=== PATIENT | female | born 1950 | race Caucasian/White ===

== ENCOUNTER → 2017-08-09 | Outpatient (CLI) | payer MEDICARE, OTHER | LOC: LAB SHORT 09:59 → PLD 09:59 | DX: D48.5 Neoplasm of uncertain behavior of skin (principal) | CPT/HCPCS: 88305 ==

== ENCOUNTER → 2018-10-18 | Outpatient (CLI) | payer MEDICARE, OTHER ==
[2018-10-19 08:15] LABS: HBSAG SCREEN Negative (Negative); HCV ANTIBODY <0.1 (0.0-0.9)
== END | disposition home or self-care (01) ==
LOC: LAB 13:05 → LAB SHORT 13:05
PROVIDERS: Emergency Medicine
DX: Z77.21 Contact with and (suspected) exposure to potentially hazardous body fluids (principal)
CPT/HCPCS: 84460; 86317; 86703; 86803; 87340

== ENCOUNTER → 2018-11-29 | Outpatient (CLI) | payer MEDICARE, OTHER ==
[2018-11-30 07:08] LABS: HIV SCREEN 4TH GENERATION WRFX Non Reactive (Non Reactive)
== END | disposition home or self-care (01) ==
LOC: LAB 13:59 → LAB SHORT 13:59
DX: Z77.21 Contact with and (suspected) exposure to potentially hazardous body fluids (principal)
CPT/HCPCS: 86803; 87389

== ENCOUNTER → 2019-02-15 | Outpatient (CLI) | payer MEDICARE, OTHER ==
[2019-02-16 04:07] LABS: HIV SCREEN 4TH GENERATION WRFX Non Reactive (Non Reactive)
== END ==
LOC: LAB 09:09 → LAB SHORT 09:09
PROVIDERS: Nurse Practitioner
DX: Z77.21 Contact with and (suspected) exposure to potentially hazardous body fluids (principal)
CPT/HCPCS: 87389

== ENCOUNTER → 2019-06-01 | Outpatient (CLI) | payer MEDICARE, OTHER ==
[2019-06-06 01:06] LABS: HCV ANTIBODY <0.1 (0.0-0.9); HIV SCREEN 4TH GENERATION WRFX Non Reactive (Non Reactive)
== END | disposition home or self-care (01) ==
LOC: LAB 17:54 → LAB SHORT 17:54
DX: Z77.21 Contact with and (suspected) exposure to potentially hazardous body fluids (principal)
CPT/HCPCS: 84460

== ENCOUNTER → 2023-10-13 | Outpatient (CLI) | payer MEDICARE, BC | END | disposition home or self-care (01) | LOC: LAB 08:47 → LAB SHORT 08:47 | DX: C44.612 Basal cell carcinoma of skin of right upper limb, including shoulder (principal) | CPT/HCPCS: 88305 ==

== ENCOUNTER → 2025-04-08 | Outpatient (CLI) | payer MEDICARE, BC ==
[2025-04-08 15:29] LABS: BASOPHILS ABSOLUTE AUTO 0.05 K/mm3 (0.00-0.23); BASOPHILS PERCENT AUTO 1 % (0-2); EOSINOPHILS ABSOLUTE AUTO 0.19 K/mm3 (0.00-0.68); EOSINOPHILS PERCENT AUTO 3 % (0-6); Hematocrit 36.6 % (33.0-51.0); Hemoglobin 12.2 g/dL (11.5-16.0); IMMATURE GRAN ABSOLUTE AUTO 0.02 K/mm3 (0.00-0.10); IMMATURE GRAN PERCENT AUTO 0 % (0-1); LYMPHOCYTES ABSOLUTE AUTO 1.23 K/mm3 (0.84-5.20); LYMPHOCYTES PERCENT AUTO 17 % (21-46); MONOCYTES ABSOLUTE AUTO 0.70 K/mm3 (0.16-1.47); MONOCYTES PERCENT AUTO 10 % (4-13); Mean Corpuscular HGB Conc 33.3 g/dL (31.5-36.5); Mean Corpuscular Volume 86 fL (80-100); NEUTROPHILS ABSOLUTE AUTO 4.99 K/mm3 (1.96-9.15); NEUTROPHILS PERCENT AUTO 70 % (41-73); NRBC ABSOLUTE 0.00 K/mm3 (0.00-0.02); NRBC Auto 0.0 /100 WBC (0.0-0.2); Platelet Count 143 K/mm3 (150-400); RDW Coefficient Variation 14.6 % (11.7-14.2); RDW Standard Deviation 46.2 fL (35.1-46.3)
[2025-04-08 15:38] LABS: Alanine Aminotransfer (ALT/SGP 23.0 U/L (12-78); Albumin, Blood 3.1 g/dL (3.4-5.0); Albumin/Globulin Ratio 0.8 (0.8-1.8); Anion Gap 15.0 mmol/L (6-16); Aspartate Aminotrans (AST/SGOT 18.0 U/L (12-37); Bilirubin, Total 0.5 mg/dL (0.1-1.0); Blood Urea Nitrogen 19.0 mg/dL (8-24); CO2, Blood 26.0 mmol/L (21-32); Calcium, Blood 8.9 mg/dL (8.5-10.1); Chloride, Blood 96.0 mmol/L (98-108); Creatinine, Blood 1.24 mg/dL (0.40-1.00); Globulin, Blood 3.9 g/dL (2.2-4.0); Glucose, Blood 189.0 mg/dL (70-99); Potassium, Blood 2.9 mmol/L (3.5-5.5); Sodium, Blood 134.0 mmol/L (136-145); Total Protein, Blood 7.0 g/dL (6.4-8.2)
[2025-04-08 16:43] LABS: Red Blood Cells, Urine 0-2 /hpf (0-2); Source, Urine Clean Catch; White Blood Cells, Urine 0-2 /hpf (0-5)
== END ==
LOC: LAB 15:23 → LAB SHORT 15:23
PROVIDERS: Family Medicine
DX: R50.9 Fever, unspecified (principal); N39.0 Urinary tract infection, site not specified; R82.90 Unspecified abnormal findings in urine; Z86.39 Personal history of other endocrine, nutritional and metabolic disease
CPT/HCPCS: 80053; 81015; 85025; 87086

== ENCOUNTER → 2025-04-09 | Outpatient (CLI) | payer MEDICARE, BC ==
[2025-04-09 10:03] LABS: Anion Gap 13.0 mmol/L (6-16); Blood Urea Nitrogen 23.0 mg/dL (8-24); CO2, Blood 28.0 mmol/L (21-32); Calcium, Blood 9.0 mg/dL (8.5-10.1); Chloride, Blood 98.0 mmol/L (98-108); Creatinine, Blood 0.77 mg/dL (0.40-1.00); Glucose, Blood 109.0 mg/dL (70-99); Potassium, Blood 3.1 mmol/L (3.5-5.5); Sodium, Blood 136.0 mmol/L (136-145)
== END | disposition home or self-care (01) ==
LOC: LAB SHORT 09:53 → LAB 09:53
PROVIDERS: Family Medicine
DX: E87.6 Hypokalemia (principal)
CPT/HCPCS: 80048